=== PATIENT | female | born 1935 | race African-American/Black ===

== ENCOUNTER 2017-05-14 09:22 | Emergency (ER) | payer MEDICARE, MEDICAID ==
[~2017-05-14] VITALS: Ht 157.5 cm; Wt 102.0 kg
[2017-05-14] MEDS ORDERED: LABETALOL 5MG/ML SYR 20 MG/4 ML SYRINGE IV ONE (10:15)
[2017-05-14] MEDS ORDERED: PREDNISOLONE ACETATE 1% OPHTH DROPS 1ML ONE (10:44)
[2017-05-14] MEDS ORDERED: BALANCED SALT IRRIG SOLN 15ML ONE (10:44)
[2017-05-14] MEDS ORDERED: CIPROFLOXACIN 0.3% OPHTH SOLN 2.5ML ONE (10:44)
[2017-05-14] MEDS ORDERED: TETRACAINE 0.5% OPHTH DROPS 4ML ONE (10:44)
[2017-05-14] MEDS ORDERED: NEO/POLYMYX B SULF/DEXAMETH OPHTH OINT 3.5GM ONE (10:44)
[2017-05-14] MEDS ORDERED: BUPIVACAINE HCL/PF 0.75% (7.5MG/ML) 10ML ONE (10:44)
[2017-05-14] MEDS ORDERED: LIDOCAINE HCL 2%/EPINEPHRINE 1:100,000 20 ML VIAL INFIL ONE (10:44)
[2017-05-14 11:25] LABS: BASOPHILS % 0.8 % (0.0-2.0); EOSINOPHILS % 1.4 % (0.0-5.0); HEMATOCRIT. 41.2 % (36.0-48.0); HEMOGLOBIN. 13.8 g/dL (12.0-16.0); LYMPHOCYTES % 37.8 % (20.0-50.0); MEAN CORPUSCULAR HEMOGLOBIN 31.9 pg (28.0-32.0); MONOCYTES % 6.8 % (2.0-8.0); NEUTROPHILS % 53.2 % (40.0-76.0); PLATELET 185 x1000/uL (130-400); RED BLOOD CELL COUNT 4.34 mill/uL (4.2-5.4); RED CELL DISTRIBUTION WIDTH 14.9 % (11.6-14.6)
[2017-05-14 11:33] LABS: PROTHROMBIN TIME 10.8 sec (9.4-11.6)
[2017-05-14 11:35] LABS: CHLORIDE 107 mEq/L (98-107)
[2017-05-14 12:00] VITALS: BP 176/71
[2017-05-14] MEDS ORDERED: MIDAZOLAM HCL 2 MG/2 ML VIAL ONE (12:14)
[2017-05-14] MEDS ORDERED: ACETAMINOPHEN 325MG TABLET PO PRN (12:30)
[2017-05-14] MEDS ORDERED: ONDANSETRON HCL 4MG/2ML VIAL IV PRN (12:30)
== END 2017-05-14 12:29 ==
LOC: ER 10:32 → EDBEDREQ 11:18 → EDBEDREQTM 11:18 → ER 12:29 → CANBEDREQ 15:55
DX: H11.31 Conjunctival hemorrhage, right eye (principal); I10 Essential (primary) hypertension; E78.00 Pure hypercholesterolemia, unspecified; E11.9 Type 2 diabetes mellitus without complications; I51.7 Cardiomegaly; T81.32XA Disruption of internal operation (surgical) wound, not elsewhere classified, initial encounter; Y77.2 Prosthetic and other implants, materials and accessory ophthalmic devices associated with adverse incidents; Y92.89 Other specified places as the place of occurrence of the external cause; Y83.8 Other surgical procedures as the cause of abnormal reaction of the patient, or of later complication, without mention of misadventure at the time of the procedure; Z96.1 Presence of intraocular lens
CPT/HCPCS: 36415; 71045; 80053; 82962; 83690; 83880; 84443; 84484; 85025; 85610; 85730; 93005; 96374; 99291; J2250; J3490

== ENCOUNTER 2017-06-04 12:52 | Day surgery (SDC) | payer MEDICARE, MEDICAID ==
[~2017-06-04] VITALS: Ht 157.5 cm; Wt 99.8 kg
[~2017-06-04 12:52] MED LIST: MITOMYCIN 0.2 MG KIT OP NR
[2017-06-04] MEDS ORDERED: SODIUM CHLORIDE 0.9% 1,000 ML IV SCH (13:00)
[2017-06-04] MEDS ORDERED: CIPROFLOXACIN 0.3% OPHTH SOLN 2.5ML ONE (14:14)
[2017-06-04] MEDS ORDERED: HYDR12.529 PO (14:14)
[2017-06-04] MEDS ORDERED: BENA40TA3 PO (14:14)
[2017-06-04] MEDS ORDERED: TETRACAINE 0.5% OPHTH DROPS 4ML ONE (14:14)
[2017-06-04] MEDS ORDERED: LIDOCAINE HCL/PF 2% 20 MG/ML 10ML VIAL ONE (14:14)
[2017-06-04] MEDS ORDERED: BUPIVACAINE HCL/PF 0.75% (7.5MG/ML) 10ML ONE (14:14)
[2017-06-04] MEDS ORDERED: ASPI-1159 PO (14:14)
[2017-06-04] MEDS ORDERED: AMLO2.5T45 PO (14:14)
[2017-06-04] MEDS ORDERED: PREDNISOLONE ACETATE 1% OPHTH DROPS 1ML ONE (14:14)
[2017-06-04] MEDS ORDERED: NEO/POLYMYX B SULF/DEXAMETH OPHTH OINT 3.5GM ONE (14:14)
[2017-06-04] MEDS ORDERED: BALANCED SALT IRRIG SOLN 15ML ONE (14:14)
[2017-06-04] MEDS ORDERED: LIDOCAINE HCL 2%/EPINEPHRINE 1:100,000 20 ML VIAL INFIL ONE (14:14)
[2017-06-04] MEDS ORDERED: TRIAMCINOLONE ACETONIDE 40MG/ML 1ML VIAL ONE (17:37)
[2017-06-04] MEDS ORDERED: MORPHINE SULFATE 4 MG/ML CPJ (NOT FOR IM USE) IV PRN (20:45)
== END 2017-06-04 19:40 | disposition home or self-care (01) ==
LOC: OR 12:52
PROVIDERS: ATTEND Ophthalmology
DX: T85.398A Other mechanical complication of other ocular prosthetic devices, implants and grafts, initial encounter (principal); H21.01 Hyphema, right eye; H40.89 Other specified glaucoma; X58.XXXA Exposure to other specified factors, initial encounter; Y93.89 Activity, other specified; Y92.89 Other specified places as the place of occurrence of the external cause; Y99.8 Other external cause status; E66.9 Obesity, unspecified; I10 Essential (primary) hypertension; G47.30 Sleep apnea, unspecified; F41.8 Other specified anxiety disorders; E11.9 Type 2 diabetes mellitus without complications; E78.00 Pure hypercholesterolemia, unspecified; Z79.899 Other long term (current) drug therapy; Z79.82 Long term (current) use of aspirin; Z98.890 Other specified postprocedural states
CPT/HCPCS: 66170; 66184; 66999; 82962; J3301; J3490; J7030

== ENCOUNTER 2019-04-04 22:17 | Emergency (ER) | payer MEDICARE, MEDICAID ==
[~2019-04-04] VITALS: Ht 165.1 cm; Wt 104.0 kg
[~2019-04-04 22:17] MED LIST changes: +AMLO2.5T45 PO; +ASPI-1497 PO; +BENA40TA9 PO; +HYDR12.529 PO; -MITOMYCIN 0.2 MG KIT OP NR
[2019-04-05 00:06] VITALS: BP 135/90
[2019-04-05] MEDS ORDERED: LIDOCAINE 1%/EPI 1:100,000 10 ML VIAL IJ ONE (00:30)
== END 2019-04-05 01:29 | disposition home or self-care (01) ==
LOC: ER 22:17
DX: S00.81XA Abrasion of other part of head, initial encounter (principal); E78.00 Pure hypercholesterolemia, unspecified; I10 Essential (primary) hypertension; E11.9 Type 2 diabetes mellitus without complications; Z79.899 Other long term (current) drug therapy; Z98.890 Other specified postprocedural states; W18.30XA Fall on same level, unspecified, initial encounter; Y93.89 Activity, other specified; Y92.89 Other specified places as the place of occurrence of the external cause; Y99.8 Other external cause status
CPT/HCPCS: 12011; 70450; 93005; 99284; J3490

== ENCOUNTER 2019-04-08 11:26 | Emergency (ER) | payer MEDICARE, MEDICAID ==
[~2019-04-08] VITALS: Ht 160 cm; Wt 95.0 kg
[2019-04-08 13:50] VITALS: BP 154/72
== END 2019-04-08 13:50 | disposition home or self-care (01) ==
LOC: ER 11:26
DX: Z48.02 Encounter for removal of sutures (principal)
CPT/HCPCS: 99281